=== PATIENT | female | born 1975 | race Caucasian/White ===

== ENCOUNTER 2017-02-24 18:27 | Emergency (ER) | payer BC ==
[~2017-02-24] VITALS: Ht 160 cm; Wt 84.5 kg
[2017-02-24 21:24] VITALS: BP 146/99
== END 2017-02-24 21:24 | disposition home or self-care (01) ==
LOC: ED 18:27
DX: I10 Essential (primary) hypertension (principal); M54.6 Pain in thoracic spine; R07.89 Other chest pain; R74.8 Abnormal levels of other serum enzymes; R00.2 Palpitations; R42 Dizziness and giddiness
CPT/HCPCS: J7030